=== PATIENT | male | born 1985 | race Caucasian/White ===

== ENCOUNTER 2018-01-20 17:09 | Emergency (ER) | payer BC ==
[~2018-01-20] VITALS: Ht 170.2 cm; Wt 77.1 kg
[2018-01-20 17:36] VITALS: BP 113/76; Ht 170.2 cm; Wt 77.1 kg
== END 2018-01-20 20:04 | disposition home or self-care (01) ==
LOC: ED 17:09
DX: S61.210A Laceration without foreign body of right index finger without damage to nail, initial encounter (principal); W23.0XXA Caught, crushed, jammed, or pinched between moving objects, initial encounter; Y93.89 Activity, other specified; Y92.89 Other specified places as the place of occurrence of the external cause; Y99.8 Other external cause status
CPT/HCPCS: 90715; A4570

== ENCOUNTER 2018-12-20 09:58 | Emergency (ER) | payer MEDICAID | END 2018-12-20 10:23 | disposition left against medical advice (07) | LOC: ED 09:58 | DX: Z53.21 Procedure and treatment not carried out due to patient leaving prior to being seen by health care provider (principal) ==